=== PATIENT | male | born 2000 | race Caucasian/White ===

== ENCOUNTER 2018-02-21 03:38 | Emergency (ER) | payer MEDICAID ==
[~2018-02-21] VITALS: Ht 170.2 cm; Wt 89.9 kg
[2018-02-21 03:41] VITALS: Ht 170.2 cm; Wt 89.9 kg
[2018-02-21 04:21] LABS: BASOPHIL % 0.2 % (0-2); PLATELET COUNT 182 x10^3mcL (130-400); RED CELL DISTRIBUTION WIDTH 12.9 % (11.5-14.5)
[2018-02-21 04:28] LABS: CALCIUM 9.5 mg/dL (8.5-10.1); CHLORIDE SERUM 103 mmol/L (98-107); GFR1 > 60 mL/min; GLUCOSE SERUM 108 mg/dL (74-106); POTASSIUM SERUM 3.6 mmol/L (3.5-5.1); SODIUM SERUM 141 mmol/L (136-145)
[2018-02-21 04:34] LABS: ALBUMIN 4.1 g/dL (3.4-5.0); ALKALINE PHOSPHATASE 84 U/L (46-116); ALT/SGPT 115 U/L (16-63); AST/SGOT 43 U/L (15-37); BILIRUBIN TOTAL 0.4 mg/dL (0.20-1.00); TOTAL PROTEIN, SERUM 7.8 g/dL (6.4-8.2)
[2018-02-21 04:53] LABS: AMPHETAMINE QUAL UR NONE DETECTED (See below)
[2018-02-21 06:41] VITALS: BP 115/90
== END 2018-02-21 07:15 | disposition home or self-care (01) ==
LOC: ED 03:38
PROVIDERS: Emergency Medicine
DX: J06.9 Acute upper respiratory infection, unspecified (principal); R07.89 Other chest pain; F41.9 Anxiety disorder, unspecified
CPT/HCPCS: 36415; 87804; J1885

== ENCOUNTER 2018-12-07 17:53 | Emergency (ER) | payer OTHER ==
[~2018-12-07] VITALS: Ht 170.2 cm; Wt 91.2 kg
[2018-12-07 18:00] VITALS: BP 155/96
== END 2018-12-07 19:20 | disposition home or self-care (01) ==
LOC: ED 17:53
DX: R07.89 Other chest pain (principal); F41.9 Anxiety disorder, unspecified